=== PATIENT | female | born 1975 | race Caucasian/White ===

== ENCOUNTER 2016-06-25 08:29 | Emergency (ER) | payer MEDICAID | END 2016-06-25 10:20 | disposition home or self-care (01) | LOC: D.ER 08:29 | DX: S83.92XA Sprain of unspecified site of left knee, initial encounter (principal); W01.0XXA Fall on same level from slipping, tripping and stumbling without subsequent striking against object, initial encounter; Y93.89 Activity, other specified; Y92.019 Unspecified place in single-family (private) house as the place of occurrence of the external cause; E66.09 Other obesity due to excess calories ==

== ENCOUNTER 2018-06-24 09:09 | Emergency (ER) | payer MEDICAID ==
[~2018-06-24] VITALS: Ht 170.2 cm; Wt 93.2 kg
[2018-06-24 09:29] VITALS: Ht 170.2 cm; Wt 93.2 kg
[2018-06-24 09:54] LABS: BASOPHILS 0.2 % (0-2); EOSINOPHILS 0.6 % (0-7); HEMATOCRIT 34.1 % (36.0-48.0); HEMOGLOBIN 10.9 g/dL (12-16); IMMATURE GRANULOCYTES 0.2 % (0-5); LYMPHOCYTES 18.8 % (15-50); MCH 26.1 pg (26.0-34.0); MCV 81.6 fL (80.0-100.0); MEAN PLATELET VOLUME 10.1 fL (7.4-10.4); MONOCYTES 4.7 % (2-11); NEUTROPHILS 75.5 % (40-80); PLATELET COUNT 322 10x3/uL (130-400); RBC 4.18 10x6/uL (4.00-5.40); RDW 18.9 % (11.5-14.5); WBC 6.7 10x3/uL (4.8-10.8)
[2018-06-24 10:07] LABS: APPEARANCE CLEAR (CLEAR); BILIRUBIN NEGATIVE (NEGATIVE); COLOR YELLOW (YELLOW); GLUCOSE NEGATIVE (NEGATIVE); KETONE NEGATIVE (NEGATIVE); NITRITE NEGATIVE (NEGATIVE); PROTEIN TRACE mg/dL (NEGATIVE); UROBILINOGEN NORMAL (NORMAL)
[2018-06-24 10:08] LABS: AMORPHOUS SEDIMENT <1+ /lpf (NONE SEEN); BACTERIA MODERATE /hpf (NONE SEEN); MUCUS <1+ /lpf (NONE SEEN); RED CELLS - URINE 0-5 /hpf (0-5); WHITE CELLS - URINE 0-5 /hpf (0-5)
[2018-06-24 10:09] LABS: ALBUMIN 3.5 g/dL (3.4-5.0); ALKALINE PHOSPHATASE 85 U/L (46-116); ALT (SGPT) 14 U/L (10-68); BILIRUBIN - TOTAL 0.24 mg/dL (0.2-1.3); CALC OSMOLALITY 273 mosm/kg (275-300); CALCIUM 8.7 mg/dL (8.5-10.1); CARBON DIOXIDE 24.6 mmol/L (21.0-32.0); CHLORIDE - SERUM 103 mmol/L (98-107); CREATININE - SERUM 0.7 mg/dL (0.6-1.3); GLUCOSE 96 mg/dL (74-106); POTASSIUM - SERUM 3.8 mmol/L (3.5-5.1); PROTEIN - SERUM 8.1 g/dL (6.4-8.2); SODIUM 137 mmol/L (136-145); UREA NITROGEN 13 mg/dL (7-18); eGFR NON AFRICAN AMERICAN > 90 mL/min (90-120)
[2018-06-24 10:32] LABS: AMYLASE - SERUM 81 U/L (25-115); LIPASE 122 U/L (73-393); TROPONIN-I < 0.017 ng/mL (0.000-0.060)
[2018-06-24] MEDS ORDERED: MACROBID100 MG PO (11:07)
[2018-06-24] MEDS ORDERED: MIRALAX17 GM PO (11:07)
[2018-06-24 12:50] VITALS: BP 124/80
== END 2018-06-24 12:51 | disposition home or self-care (01) ==
LOC: D.ER 09:09
PROVIDERS: Family Medicine
DX: K59.00 Constipation, unspecified (principal); N39.0 Urinary tract infection, site not specified; R11.0 Nausea

== ENCOUNTER 2018-07-16 08:02 | Emergency (ER) | payer MEDICAID ==
[~2018-07-16] VITALS: Ht 170.2 cm; Wt 110.5 kg
[~2018-07-16 08:02] MED LIST: MACROBID100 MG PO; MIRALAX17 GM PO
[2018-07-16 08:13] VITALS: Ht 170.2 cm; Wt 110.5 kg
[2018-07-16] MEDS ORDERED: FEXOFENADINE H180 MG PO (09:13)
[2018-07-16] MEDS ORDERED: KEFLEX500 MG PO (09:13)
[2018-07-16 09:41] VITALS: BP 154/91
== END 2018-07-16 09:42 | disposition home or self-care (01) ==
LOC: D.ER 08:02
DX: J06.9 Acute upper respiratory infection, unspecified (principal)

== ENCOUNTER 2018-11-03 09:32 | Emergency (ER) | payer MEDICAID ==
[~2018-11-03] VITALS: Ht 170.2 cm; Wt 110.5 kg
[~2018-11-03 09:32] MED LIST changes: +FEXOFENADINE H180 MG PO; +KEFLEX500 MG PO
[2018-11-03 09:42] VITALS: Ht 170.2 cm; Wt 110.5 kg
[2018-11-03] MEDS ORDERED: KEFLEX500 MG PO (10:50)
[2018-11-03] MEDS ORDERED: VOLTAREN75 MG PO (10:51)
[2018-11-03 11:09] VITALS: BP 118/67
== END 2018-11-03 11:19 | disposition home or self-care (01) ==
LOC: D.ER 09:32
DX: S61.412A Laceration without foreign body of left hand, initial encounter (principal); Y04.2XXA Assault by strike against or bumped into by another person, initial encounter; Y93.89 Activity, other specified; Y92.89 Other specified places as the place of occurrence of the external cause

== ENCOUNTER 2018-12-13 15:49 | Emergency (ER) | payer MEDICAID ==
[~2018-12-13] VITALS: Ht 170.2 cm; Wt 109.7 kg
[~2018-12-13 15:49] MED LIST changes: +VOLTAREN75 MG PO
[2018-12-13 16:06] VITALS: Ht 170.2 cm; Wt 109.7 kg
[2018-12-13] MEDS ORDERED: TORADOL10 MG PO (17:13)
[2018-12-13 17:30] VITALS: BP 137/89
== END 2018-12-13 17:31 | disposition home or self-care (01) ==
LOC: D.ER 15:49
DX: S50.02XA Contusion of left elbow, initial encounter (principal); S90.32XA Contusion of left foot, initial encounter; S40.022A Contusion of left upper arm, initial encounter; Y00.XXXA Assault by blunt object, initial encounter; F17.210 Nicotine dependence, cigarettes, uncomplicated

== ENCOUNTER 2019-03-31 11:37 | Emergency (ER) | payer MEDICAID ==
[~2019-03-31] VITALS: Ht 170.2 cm; Wt 110.5 kg
[~2019-03-31 11:37] MED LIST changes: +TORADOL10 MG PO
[2019-03-31 11:45] VITALS: Ht 170.2 cm; Wt 110.5 kg
[2019-03-31] MEDS ORDERED: ZPAK PO (14:30)
[2019-03-31] MEDS ORDERED: TESSALON PERLE100 MG PO (14:30)
[2019-03-31 15:07] VITALS: BP 136/86
== END 2019-03-31 15:09 | disposition home or self-care (01) ==
LOC: D.ER 11:37
DX: J32.9 Chronic sinusitis, unspecified (principal); H92.01 Otalgia, right ear